=== PATIENT | male | born 1955 | race African-American/Black ===

== ENCOUNTER 2018-08-31 14:57 | Outpatient (CLI) | payer OTHER ==
--- NOTE | 2018-08-31 15:33 | RAD ---
Exam: Left RIBS 3 views COMPARISON: None FINDINGS: No pneumothorax Minimally displaced fracture involving the posterior lateral left seventh rib. Additional fracture in volves the anterior ninth rib. IMPRESSION: Fractures involving the left seventh and ninth rib.
== END 2018-08-31 14:58 | disposition home or self-care (01) ==
LOC: BICRAD 14:57
PROVIDERS: ATTEND Internal Medicine
DX: R07.89 Other chest pain (principal); S22.42XA Multiple fractures of ribs, left side, initial encounter for closed fracture

== ENCOUNTER 2018-11-17 10:57 | Outpatient (CLI) | payer MEDICARE ==
--- NOTE | 2018-11-17 11:20 | RAD ---
SCOLIOSIS STUDY: Date; 11/17/18 HISTORY: Back pain. FINDINGS: The vertebral bodies are normal in height. There is no significant scoliotic change to the spine. The re are arthritic changes along the course of the spine. There are some faint calcifications in the abdomen. I cannot definitely exclude renal calculi. IMPRESSION: Arthritic changes of the spine. No significant scoliosis. POS: [facility]
== END 2018-11-17 10:58 | disposition home or self-care (01) ==
LOC: BICRAD 10:57
PROVIDERS: ATTEND Internal Medicine
DX: M41.34 Thoracogenic scoliosis, thoracic region (principal); M47.814 Spondylosis without myelopathy or radiculopathy, thoracic region
CPT/HCPCS: 72081